=== PATIENT | female | born 1925 | race Caucasian/White ===

== ENCOUNTER 2017-04-03 12:07 | Emergency (ER) | payer MEDICARE ==
[~2017-04-03] VITALS: Ht 152.4 cm; Wt 63.5 kg
--- NOTE | 2017-04-03 14:10 | NUR ---
Pt walking around room 4, anxious about seeing the doctor, MSE pending.
--- NOTE | 2017-04-03 14:19 | NUR ---
Dr. Cross at bedside for MSE.
--- NOTE | 2017-04-03 15:00 | NUR ---
Rabies Vaccine given as ordered by Dr. Cross after verbal and written consent was obtained. Dr. Cross also ordered Rabies Immune-Globulin 1200 units, dose was not available per pharmacist (Mini). Per pharmacist it can be given within seven days, pharmacy will try to obtain the dose and it can be given in 3 days from now when the patient comes back for the second vaccine. Pharmacist was present in ER and discussed the situation with . The patient was given extensive instructions for follow up by myself and .
--- NOTE | 2017-04-03 16:01 | NUR ---
Patient discharged to home in stable conditon with friend. Written and verbal after care instructions given. Patient verbalizes understanding of instructions. Stressed follow up, pt given extensive ACI for follow up.
== END 2017-04-03 16:03 | disposition home or self-care (01) ==
LOC: ER 13:30
DX: S61.254A Open bite of right ring finger without damage to nail, initial encounter (principal); I10 Essential (primary) hypertension; E78.00 Pure hypercholesterolemia, unspecified; W55.51XA Bitten by raccoon, initial encounter; Y93.89 Activity, other specified; Y92.9 Unspecified place or not applicable; Y99.9 Unspecified external cause status
CPT/HCPCS: 90376; A4663

== ENCOUNTER 2017-04-06 09:17 | Emergency (ER) | payer MEDICARE ==
[~2017-04-06] VITALS: Ht 152.4 cm; Wt 63.5 kg
--- NOTE | 2017-04-06 10:51 | NUR ---
PHARNMACY NOTE?DISCHARGE NOTE:At 1007 ,Pt signed consent and 1 unit rabies vaccine-lot#=[id number]/exp=01/27/18 administered to left thigh, and rabies immune globulin 1200 units lot#[id number]/exp-02/01/18, divided dose in 2 parts and administrated to left and rt thighs. pt was then positioned for comfort on the guerney and monitored for any adverse or allergic reactions/side affects . At 1055. pt denied any adverse side affects or allergic reactions. Pt d/c'd home, aci given. Pt ambulated with walker w/o diff/took all belongings. [employer] former supervisor present and to drive.
[2017-04-06 11:04] VITALS: BP 150/69
== END 2017-04-06 11:00 | disposition home or self-care (01) ==
LOC: ER 09:17
DX: S61.250A Open bite of right index finger without damage to nail, initial encounter (principal); Z23 Encounter for immunization; I10 Essential (primary) hypertension; E78.00 Pure hypercholesterolemia, unspecified; Z90.49 Acquired absence of other specified parts of digestive tract; W55.51XA Bitten by raccoon, initial encounter; Y93.89 Activity, other specified; Y92.9 Unspecified place or not applicable; Y99.9 Unspecified external cause status
CPT/HCPCS: 90376; A4663

== ENCOUNTER 2017-04-10 09:29 | Emergency (ER) | payer MEDICARE, MEDICAID ==
[~2017-04-10] VITALS: Ht 152.4 cm; Wt 61.2 kg
--- NOTE | 2017-04-10 10:18 | NUR ---
Patient discharged to home in stable conditon with friend. Written and verbal after care instructions given. Patient verbalizes understanding of instructions. Stressed follow up for next vaccine or return to ER for worsening s/s.
== END 2017-04-10 10:19 | disposition home or self-care (01) ==
LOC: ER 09:29
DX: Z23 Encounter for immunization (principal); I10 Essential (primary) hypertension; E78.00 Pure hypercholesterolemia, unspecified; Z88.6 Allergy status to analgesic agent
CPT/HCPCS: 90376; A4663

== ENCOUNTER 2017-04-17 09:33 | Emergency (ER) | payer MEDICARE, MEDICAID ==
[~2017-04-17] VITALS: Ht 152.4 cm; Wt 61.2 kg
--- NOTE | 2017-04-17 10:03 | NUR ---
MSE COMPLETED, KATLYN VACCINE ADMIN. PT D/C'D HOME, ACI GIVEN. PT AMBULTED W/O OPAL USING A WALKER. PT KIT VEGAS.
[2017-04-17 10:05] VITALS: BP 135/65
== END 2017-04-17 10:06 | disposition home or self-care (01) ==
LOC: ER 09:33
DX: Z48.00 Encounter for change or removal of nonsurgical wound dressing (principal); Z23 Encounter for immunization; I10 Essential (primary) hypertension; E78.00 Pure hypercholesterolemia, unspecified
CPT/HCPCS: A4663

== ENCOUNTER 2017-04-24 09:49 | Emergency (ER) | payer MEDICARE, MEDICAID ==
[~2017-04-24] VITALS: Ht 152.4 cm; Wt 59.0 kg
--- NOTE | 2017-04-24 10:14 | NUR ---
Dr Roberto at the bedside.
[2017-04-24] MEDS ORDERED: RABIES VACCINE (PCEC)/PF 2.5 UNIT ML IM ONE ×2 (10:30→10:42)
[2017-04-24 10:44] VITALS: BP 110/69
--- NOTE | 2017-04-24 10:48 | NUR ---
Patient discharged to home in stable conditon. Written and verbal after care instructions given. Patient verbalizes understanding of instructions.
== END 2017-04-24 10:49 | disposition home or self-care (01) ==
LOC: ER 09:49
DX: Z23 Encounter for immunization (principal); I10 Essential (primary) hypertension; E78.00 Pure hypercholesterolemia, unspecified; Z88.6 Allergy status to analgesic agent; Z90.49 Acquired absence of other specified parts of digestive tract
CPT/HCPCS: A4663